=== PATIENT | male | born 1985 | race Caucasian/White ===

== ENCOUNTER 2016-06-16 17:17 | Emergency (ER) | payer OTHER ==
[~2016-06-16] VITALS: Ht 175.3 cm; Wt 81.1 kg
[2016-06-16] MEDS ORDERED: LISINOPRIL20 MG PO (17:34)
[2016-06-16] MEDS ORDERED: SUBOXONE 2 MG-1 EACH SL (17:35)
[2016-06-16] MEDS ORDERED: DESYREL100 MG PO (19:51)
[2016-06-16 20:18] VITALS: BP 132/88
== END 2016-06-16 20:19 | disposition home or self-care (01) ==
LOC: EME 17:17
DX: G47.00 Insomnia, unspecified (principal); F11.23 Opioid dependence with withdrawal; I10 Essential (primary) hypertension

== ENCOUNTER 2016-07-02 02:35 | Emergency (ER) | payer OTHER ==
[~2016-07-02] VITALS: Ht 175.3 cm; Wt 80.8 kg
[~2016-07-02 02:35] MED LIST: DESYREL100 MG PO; LISINOPRIL20 MG PO; SUBOXONE 2 MG-1 EACH SL
[2016-07-02] MEDS ORDERED: NARCAN4 MG NS (04:35)
[2016-07-02 05:00] VITALS: BP 129/85
== END 2016-07-02 05:00 | disposition home or self-care (01) ==
LOC: EME → EDBD 02:35 → EME 05:00
DX: T40.1X1A Poisoning by heroin, accidental (unintentional), initial encounter (principal); F11.23 Opioid dependence with withdrawal; I10 Essential (primary) hypertension
CPT/HCPCS: 99281; 99284